=== PATIENT | male | born 1995 | race Asian ===

== ENCOUNTER 2016-11-15 16:13 | Emergency (ER) | payer MEDICAID, OTHER ==
[~2016-11-15] VITALS: Ht 185.4 cm; Wt 79.8 kg
[~2016-11-15 16:13] MED LIST: ENAL5TAB PO
--- NOTE | 2016-11-15 16:15 | NUR ---
SUBSTERNAL CHEST PAIN RADIATES TO L ARM SINCE WEDNESDAY. GOWNED PT . PLACED ON MONITOR. AWAITING MD ORDER
--- NOTE | 2016-11-15 16:45 | NUR ---
EKG IN PROGRESS
[2016-11-15 16:55] LABS: BASOPHILS # (AUTO) 0.1 /CMM (0.0-0.2); EOSINOPHILS # (AUTO) 0.1 /CMM (0.0-0.7); EOSINOPHILS % (AUTO) 0.8 % (0.0-6.0); HEMATOCRIT 50 % (39-51); HEMOGLOBIN 16.6 g/dL (13.5-17.5); LYMPHOCYTES # (AUTO) 3.8 /CMM (0.8-4.8); LYMPHOCYTES % (AUTO) 31.7 % (20.0-44.0); MEAN CORPUSCULAR HEMOGLOBIN 28 PG (26.0-33.0); MEAN CORPUSCULAR HGB CONC 33 g/dl (31.0-36.0); MEAN CORPUSCULAR VOLUME 83 fL (80-96); MONOCYTES # (AUTO) 0.6 /CMM (0.1-1.30); MONOCYTES % (AUTO) 4.7 % (2.0-12.0); NEUTROPHILS # (AUTO) 7.2 /CMM (1.8-8.9); NEUTROPHILS % (AUTO) 61.8 % (43.0-81.0); PLATELET COUNT (AUTO) 433 /CMM (150-450); RDW COEFFICIENT OF VARIATION 12.4 (11.5-15.0); RED BLOOD CELL COUNT(AUTO) 6.01 MIL/uL (4.5-6.0); WHITE BLOOD COUNT (AUTO) 11.8 K/uL (4.3-11.0)
--- NOTE | 2016-11-15 16:55 | NUR ---
RAC #[id number] IV ACCESS. BLOOD SAMPLE COLLECTED SENT TO LAB
[2016-11-15] MEDS ORDERED: IOHEXOL-350 100 ML VIAL IV ONE (16:58)
[2016-11-15] MEDS ORDERED: IV NS 0.9% 250 ML IV ONE (16:58)
[2016-11-15] MEDS ORDERED: IV NS 0.9% 500 ML BAG IV ONE (17:00)
[2016-11-15 17:14] LABS: ALBUMIN 4.5 g/dL (3.4-5.0); BILIRUBIN,DIRECT 0.1 mg/dL (0.0-0.2); BILIRUBIN,TOTAL 0.6 mg/dL (0.2-1.0); TOTAL PROTEIN, SERUM 8.8 g/dL (6.4-8.2)
[2016-11-15 17:15] LABS: CALCIUM, SERUM 9.4 mg/dL (8.5-10.1); CARBON DIOXIDE 28 mmol/L (21-32); CHLORIDE 102 mmol/L (98-107); GLUCOSE 90 mg/dL (74-106); INR 0.99 (0.87-1.13); POTASSIUM 4.1 mmol/L (3.5-5.1); PROTHROMBIN TIME 10.3 SECS (9.5-12.7); SODIUM SERUM 139 mmol/L (136-145); UREA NITROGEN, BLOOD 11 mg/dL (7-18)
[2016-11-15 17:17] LABS: TROPONIN I < 0.017 ng/mL (0.00-0.056)
[2016-11-15 19:00] VITALS: BP 152/99
--- NOTE | 2016-11-15 19:00 | NUR ---
Patient discharged to home in stable condition. Written and verbal after care instructions given. Patient verbalizes understanding of instruction.
--- NOTE | 2016-11-15 19:00 | NUR ---
IV removed. Catheter intact and site benign. Pressure and 4x4 applied to site. No bleeding noted.
== END 2016-11-15 19:03 | disposition home or self-care (01) ==
LOC: ER 16:18
DX: R07.89 Other chest pain (principal); R10.13 Epigastric pain
CPT/HCPCS: 36415; 71010; 71275; 80048; 80076; 83690; 84484; 85025; 85730; 93005; 99285; A4606; J7040; J7050; Q9967; Z7610